=== PATIENT | male | born 1995 | race Caucasian/White ===

== ENCOUNTER 2017-09-25 00:45 | Emergency (ER) | payer BC ==
[~2017-09-25] VITALS: Ht 177.8 cm; Wt 111.8 kg
[2017-09-25 01:01] VITALS: BP 117/88
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
[2017-09-25 02:45] VITALS: BP 121/85
--- NOTE | 2017-09-25 02:45 | NUR ---
Patient discharged with v/s stable. Written and verbal after care instructions given and explained. Patient alert, oriented and verbalized understanding of instructions. Ambulatory with steady gait. All questions addressed prior to discharge. ID band removed. Patient advised to follow up with PMD. Rx of NAPROXEN 500MG given. Patient educated on indication of medication including possible reaction and side effects. Opportunity to ask questions provided and answered.
== END 2017-09-25 02:45 | disposition home or self-care (01) ==
LOC: MED 00:45
DX: S63.91XA Sprain of unspecified part of right wrist and hand, initial encounter (principal); X58.XXXA Exposure to other specified factors, initial encounter; Y93.89 Activity, other specified; Y92.89 Other specified places as the place of occurrence of the external cause; Y99.8 Other external cause status
CPT/HCPCS: 73130; 99284

== ENCOUNTER 2021-09-06 04:44 | Emergency (ER) | payer BC, OTHER ==
[~2021-09-06] VITALS: Ht 177.8 cm; Wt 114.0 kg
[2021-09-06 04:56] VITALS: BP 137/85
[2021-09-06 05:04] VITALS: BP 137/85
--- NOTE | 2021-09-06 05:04 | NUR ---
Patient discharged with v/s stable. Written and verbal after care instructions given and explained. Patient verbalized understanding. Ambulatory with steady gait. All questions addressed prior to discharge. Advised to follow up with PMD.
== END 2021-09-06 05:04 | disposition home or self-care (01) ==
LOC: MED 04:44
DX: F13.20 Sedative, hypnotic or anxiolytic dependence, uncomplicated (principal); Z76.0 Encounter for issue of repeat prescription
CPT/HCPCS: 99281